=== PATIENT | female | born 1960 | race Caucasian/White ===

== ENCOUNTER 2018-01-13 08:41 | Emergency (ER) | payer BC, OTHER ==
[2018-01-13 08:56] VITALS: BP 110/63
--- NOTE | 2018-01-13 09:32 | RAD ---
INDICATION: Positive PPD. COMPARISON: There are no prior studies available for comparison. TECHNIQUE: Dual-energy PA and lateral views of the chest were obtained. FINDINGS: The heart is within normal limits in size. Mediastinal and hilar contours appear within normal limits. The lungs are clear. No pleural effusion is present. IMPRESSION: NO EVIDENCE FOR ACTIVE CARDIOPULMONARY DISEASE.
--- NOTE | 2018-01-13 09:38 | UC ---
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 no cough or wt loss - History of Current Complaint Chief Complaint: UCGeneralIllness Stated Complaint: NEEDS CHEST XRAY Time Seen by Provider: 01/13/18 09:09 Hx Obtained From: Patient Hx Last Menstrual Period: 12/13/17 Onset/Duration: Gradual Onset Timing: Constant Severity Initially: Mild Severity Currently: Mild Pain Intensity: 2 Associated Signs And Symptoms: Positive: Negative - Allergies/Home Medications Allergies/Adverse Reactions: Allergies Allergy/AdvReac Type Severity Reaction Status Date / Time azithromycin Allergy Rash Verified 01/13/18 08:50 piroxicam [From its learning] Allergy Unknown Verified 01/13/18 08:50 Reaction Details Home Medications: Home Medications FLUoxetine CAP* [Prozac CAP*] 40 mg PO DAILY 01/13/18 [History Confirmed ] Melatonin/Pyridoxine HCl (B6) [Melatonin 5 mg Tablet] 5 mg PO BEDTIME PRN [History Confirmed 01/13/18] PMH/Surg Hx/FS Hx/Imm Hx Previously Healthy: Yes - Surgical History Surgical History: Yes Surgery Procedure, Year, and Place: Hand, Tendon Repair - Family History Known Family History: Positive: Other - uterine CA Negative: Cardiac Disease, Hypertension, Diabetes - Social History Alcohol Use: Weekly Alcohol Amount: 4-5 weely Substance Use Type: None Smoking Status (MU): Never Smoked Tobacco Review of Systems Constitutional: Negative Skin: Negative Eyes: Negative ENT: Sore Throat Respiratory: Negative Cardiovascular: Negative Gastrointestinal: Negative Genitourinary: Negative Motor: Negative Neurovascular: Negative Musculoskeletal: Negative Neurological: Negative Psychological: Negative Is Patient Immunocompromised?: No All Other Systems Reviewed And Are Negative: Yes Physical Exam Triage Information Reviewed: Yes Appearance: Well-Appearing, No Pain Distress, Well-Nourished Vital Signs: Initial Vital Signs Temp 98.3 F 01/13/18 08:52 Pulse 67 01/13/18 08:52 Resp 18 01/13/18 08:52 BP 110/63 01/13/18 08:52 Pulse Ox 100 01/13/18 08:52 Vital Signs Reviewed: Yes Eyes: Positive: Conjunctiva Clear ENT: Positive: Hearing grossly normal, Pharyngeal erythema, TMs normal, Tonsillar swelling - L>R, Uvula midline. Negative: Nasal congestion, Nasal drainage, Tonsillar exudate, Trismus, Muffled voice, Hoarse voice, Dental tenderness Respiratory: Positive: Lungs clear, Normal breath sounds, No respiratory distress, No accessory muscle use Cardiovascular: Positive: RRR, No Murmur Musculoskeletal: Positive: ROM Intact, No Edema Neurological: Positive: Alert Psychological Exam: Normal Skin Exam: Normal UC Diagnostic Evaluation - Laboratory Pertinent Lab Values Are: WNL - strep (-) O2 Sat by Pulse Oximetry: 100 - normal/not hypoxic - Radiology Xray Interpretation: No Acute Changes Radiology Interpretation Completed By: Radiologist Respiratory Course/Dx - Course Course Of Treatment: strep (-). will be out of town for one week. advised here to recheck when she gets home if not better - Differential Dx/Diagnosis Provider Diagnoses: normal chest XR. pharyngitis Discharge - Discharge Plan Condition: Stable Disposition: HOME Patient Education Materials: Pharyngitis (ED) Referrals: Saul Inman MD [Primary Care Provider] - 1 Week Additional Instructions: CXR (-) strep (-)
== END 2018-01-13 10:06 | disposition home or self-care (01) ==
LOC: UCEAST 08:41
DX: J02.9 Acute pharyngitis, unspecified (principal); R76.11 Nonspecific reaction to tuberculin skin test without active tuberculosis; Z88.1 Allergy status to other antibiotic agents
CPT/HCPCS: 71046; 87651; 99212; G0463

== ENCOUNTER 2018-02-20 12:31 | Emergency (ER) | payer SELFPAY ==
--- OUTSIDE RECORDS SUMMARY | 2018-02-20 12:38 | XMS REPORT ---
:1960 External Reference #:[id number] Author Organization [email or web address] Address [address] [address] Phone [phone] Care Team Providers Name Role Phone Saul Inman III, MD Primary Care Physician Unavailable Payers Type Date Identification Numbers Payment Provider Subscriber Commercial Effective: Policy Number: [id number] [facility] Andrea Posey 2012 PayID: [id number] [address] [place] [address] Problems Date Description Provider Status Onset: 10/14/2013 Obesity Sara Mills M.D. Active Onset: 10/14/2013 Temporomandibular joint click Sara Mills M.D. Active Onset: 10/14/2013 Arthralgia of the ankle and/or foot Sara Mills M.D. Active Onset: 10/14/2013 Seborrheic dermatitis Sara Mills M.D. Active Onset: 10/14/2013 Insomnia Sara Mills M.D. Active Family History Date Family Member(s) Problem(s) Comments General dementia Lewy body Social History Type Date Description Comments Lives With Spouse Lives With Daughter Lives With Son Occupation contract research ETOH Use Occasionally consumes alcohol Smoking Patient is a former smoker Smoking started at 18, quit at 21. 1/2pk pd Daily Caffeine Does Not Consume Caffeine Exercise Type/Frequency Does not exercise Sexual Hx text yes Allergies, Adverse Reactions, Alerts Date Description Reaction Status Severity Comments 10/14/2013 Zithromax unknown active 10/14/2013 Feldene Red spots on skin when in the sun active Mild Medications Medication Date Status Form Strength Qnty SIG Indications Ordering Provider Fluoxetine HCL 01/30 Active Tablets 20mg 90tab 1 tablet F41.1 Saul E. s daily. Tameka Inman Melatonin Active Unknown Clonazepam Active Tablets 0.5mg 10tab 1 by mouth Saul E. s 1-2 times a Henny, day as M.D. needed with travel Clonazepam 01/06 Hx Tablets 0.5mg 1 by mouth before Gene, - bedtime as M.DMeena 12/12 Hydrocortisone 01/06 Hx Cream 2.5% 45gm currenly not using Gene, - tapply to M.D. 09/17 hemorrhoids or anus 2-3 times per day prn Fluoxetine HCL 01/06 Hx Capsules 40mg 30cap 1 po qd 300.02 Markell Barron M.D. 12/12 Fluoxetine HCL 12/16 Hx Tablets 10mg 90tab 3 po every 300.02 day Markell Mills M.D. 01/06 Fluoxetine HCL 12/13 Hx Tablets 10mg 30tab 1 po every 300.02 s Markell Sierra M.D. 12/16 Lunesta 11/11 Hx Tablets 3mg 30tab 1 tab po at 780.52 s bedtime Markell Mills M.D. 01/06 Trazodone HCL 10/14 Hx Tablets 50mg 30tab 1 tab po at 780.52 s bedtime prn Markell Mills M.D. 12/13 Alprazolam Hx Tablets 0.5mg 10tab 1 by mouth s bid prn Markell Mills M.D. 01/06 Medroxyprogesteron Hx Tablets 10mg Ovi, eve Taniya Keenan MD 09/16 Fluoxetine HCL Hx Capsules 40mg 30cap 1 by mouth F41.1 Saul E. s every day Markell Inman M.D. 01/30 Stool Softener Hx Capsules 100mg 1 by mouth Unknown every day - 09/16 Immunizations CPT Code Status Date Vaccine Reaction Lot # [id number] Given 09/18/2017 Influenza Virus Vaccine, Pt. tolerated well. No [id number] Quadrivalent, Split, reaction noted. Preservative Free [id number] Given 12/12/2016 Influenza Virus Vaccine, [id number] Quadrivalent, Split Virus, [place] Use [id number] Given 08/17/2015 Influenza Virus Vaccine, [id number] Quadrivalent, Split, Preservative Free [id number] Given 11/24/2008 Tetanus And Diptheria (Td) For Adult Use Preservative Free Vital Signs Date Vital Result Comment 01/30/2018 Weight 200.00 lb Heart Rate 75 /min BP Systolic Sitting 98 mmHg BP Diastolic Sitting 64 mmHg Body Temperature 98.0 F O2 % BldC Oximetry 98 % 09/18/2017 Height 68.5 inches 5'8.50" Weight 203.00 lb Heart Rate 83 /min BP Systolic Sitting 100 mmHg BP Diastolic Sitting 68 mmHg Body Temperature 98.2 F O2 % BldC Oximetry 98 % BMI (Body Mass Index) 30.4 kg/m2 06/11/2017 Height 68.50 inches 5'8.50" Weight 237.12 lb Heart Rate 57 /min BP Systolic 110 mmHg BP Diastolic 68 mmHg Body Temperature 98.9 F O2 % BldC Oximetry 99 % BMI (Body Mass Index) 35.5 kg/m2 12/12/2016 Weight 206.25 lb Heart Rate 74 /min BP Systolic Sitting 102 mmHg BP Diastolic Sitting 60 mmHg Body Temperature 97.3 F O2 % BldC Oximetry 98 % 09/19/2015 Height 68.75 inches 5'8.75" Weight 200.00 lb Heart Rate 70 /min BP Systolic Sitting 118 mmHg BP Diastolic Sitting 68 mmHg Body Temperature 97.6 F O2 % BldC Oximetry 98 % BMI (Body Mass Index) 29.7 kg/m2 08/17/2015 Weight 203.25 lb Heart Rate 72 /min BP Systolic Sitting 116 mmHg BP Diastolic Sitting 68 mmHg Body Temperature 97.2 F Pain Level 0 O2 % BldC Oximetry 98 % 01/06/2015 Weight 205.25 lb Heart Rate 76 /min BP Systolic Sitting 112 mmHg BP Diastolic Sitting 68 mmHg Body Temperature 98.6 F 01/06/2014 Weight 206.00 lb Heart Rate 74 /min BP Systolic Sitting 106 mmHg BP Diastolic Sitting 68 mmHg 12/13/2013 Weight 209.00 lb Heart Rate 77 /min BP Systolic Sitting 99 mmHg BP Diastolic Sitting 63 mmHg 11/11/2013 Weight 208.00 lb Heart Rate 74 /min BP Systolic Sitting 109 mmHg BP Diastolic Sitting 68 mmHg 10/14/2013 Height 68.25 inches 5'8.25" Weight 208.00 lb Heart Rate 70 /min BP Systolic Sitting 109 mmHg BP Diastolic Sitting 63 mmHg BMI (Body Mass Index) 31.4 kg/m2 Results Test Date Test Result H/L Range Note Lipid Profile (Trig/Chol/HDL) 12/11/2016 Triglycerides 146 mg/dL 1 Cholesterol 163 mg/dL 2 HDL Cholesterol 54.4 mg/dL 3 LDL Cholesterol 79 mg/dL 4 Basic Metabolic Panel 12/11/2016 Sodium 136 mmol/L 133-145 Potassium 4.4 mmol/L 3.5-5.0 Chloride 104 mmol/L 101-111 Co2 Carbon Dioxide 29 mmol/L 22-32 Anion Gap 3 mmol/L 2-11 Glucose 90 mg/dL 70-100 Blood Urea Nitrogen 18 mg/dL 6-24 Creatinine 0.93 mg/dL 0.51-0.95 BUN/Creatinine Ratio 19.4 8-20 Calcium 9.0 mg/dL 8.6-10.3 Egfr Non- 62.8 >60 Egfr 80.8 >60 5 CBC No Diff 05/20/2014 White Blood Count 7.3 10^3/uL 4.8-10.8 Red Blood Count 4.63 10^6/uL 4.0-5.4 Hemoglobin 13.9 g/dL 12.0-16.0 Hematocrit 41 % 35-47 Mean Corpuscular Volume 89 fL 80-97 Mean Corpuscular Hemoglobin 30 pg 27-31 Mean Corpuscular HGB Conc 34 g/dL 31-36 Red Cell Distribution Width 14 % 10.5-15 Platelet Count 328 10^3/uL 150-450 Mean Platelet Volume 8 um3 7.4-10.4 Laboratory test finding 05/20/2014 Free T4 1.14 ng/mL High 0.61-1.12 TSH (Thyroid Stimulating Horm) 2.40 IU/mL 0.34-5.60 Prolactin 19.7 ng/mL 1.0-25.0 Laboratory test finding 01/31/2014 TSH (Thyroid Stimulating 1.09 IU/mL 0.34-5.60 6 Horm) Lipid Profile 01/31/2014 Triglycerides 114 mg/dL 7 (Trig/Chol/HDL) Cholesterol 159 mg/dL 8 HDL Cholesterol 52.2 mg/dL 9 LDL Cholesterol 84 mg/dL 10 1 Desirable <150 Borderline high 150-199 High 200-499 Very High >500 2 Desirable <200 Borderline high 200-239 High >239 3 Low <40 Desirable: 40-60 High: >60 4 Desirable: <100 mg/dL Near Optimal: 100-129 mg/dL Borderline High: 130-159 mg/dL High: 160-189 mg/dL Very High: >189 mg/dL 5 Because ethnic data is not always readily available, this report includes an eGFR for both -Americans and non- Americans. The National Kidney Disease Education Program (NKDEP) does not endorse the use of the MDRD equation for patients that are not between the ages of 18 and 70, are , have extremes of body size, muscle mass, or nutritional status, or are non- or non-. According to the National Kidney Foundation, irrespective of diagnosis, the stage of the disease is based on the level of kidney function: Stage Description GFR(mL/min/1.73 m(2)) 1 Kidney damage with normal or decreased GFR 90 2 Kidney damage with mild decrease in GFR 60-89 3 Moderate decrease in GFR 30-59 4 Severe decrease in GFR 15-29 5 Kidney failure <15 (or dialysis) 6 PT IS FASTING 7 Desirable <150 Borderline high 150-199 High 200-499 Very High >500 8 Desirable <200 Borderline high 200-239 High >239 9 Low <40 Desirable: 40-60 High: >60 10 Desirable <100 Near Optimal 100-129 Borderline high 130-159 High 160-189 Very High >189 Procedures Date CPT Code Description Status 05/14/2016 Mammogram Completed 07/21/2015 Mammogram Completed 04/27/2014 Mammogram Completed 11/24/2011 Colonoscopy Completed Encounters Type Date Location Provider CPT E/M Dx Office Visit 09/18/2017 1:20p [facility] Saul Inman, 83229 F41.1 - Joann English K58.1 Z23 Office Visit 06/11/2017 4:20p [facility] Saul Inman, 49796 R10.30 - Joann English Office Visit 12/12/2016 10:40a [facility] Saul Inman, 59677 Z00.00 - Joann English R21 F41.1 Z23 Office Visit 08/17/2015 12:40p [facility] Sara Mills M.D. 73973 L40.0 - [place] K60.2 V04.81 Z23 Office Visit 01/06/2015 9:40a [facility] Sara Mills M.D. 92959 564.1 - [place] 455.3 Office Visit 01/06/2014 10:40a [facility] Sara Mills M.D. 47768 300.02 - [place] 780.52 Office Visit 12/13/2013 2:00p [facility] Sara Mills M.D. 93352 300.02 - [place] 780.52 V76.51 Office Visit 11/11/2013 11:00a [facility] Sara Mills M.D. 99209 780.52 - [place] Office Visit 10/14/2013 10:00a [facility] Sara Mills M.D. 01638 V70.0 - [place] 278.00 524.64 719.47 690.10 780.52 V17.49 Plan of Care Future Appointment(s):04/22/2018 9:20 am - Saul Inman M.D. at [facility] - Ijnqaitwx43/09/2018 - Saul Inman M.D.[id number] Contusion of right lower leg, initial encounter
[2018-02-20 12:47] VITALS: BP 101/61
--- NOTE | 2018-02-20 13:54 | UC ---
Skin Complaint HPI - HPI Summary HPI Summary: Patient has pain and burning in right side bra line---no open areas---has taken 200 mg 3-4 times a days for 2 days with out much relief (med 2010) - History of Current Complaint Chief Complaint: UCSkin Time Seen by Provider: 02/20/18 13:43 Stated Complaint: SKIN COMPLAINT Hx Obtained From: Patient Hx Last Menstrual Period: 01/21/18 ?: No Onset/Duration: Sudden Onset, Lasting Days - 3, Still Present Timing: Constant Onset Severity: Moderate Current Severity: Moderate Location: Discrete Character: Pain Aggravating Factor(s): Nothing Alleviating Factor(s): Nothing Associated Signs & Symptoms: Positive: Negative - Allergy/Home Medications Allergies/Adverse Reactions: Allergies Allergy/AdvReac Type Severity Reaction Status Date / Time azithromycin Allergy Rash Verified 01/13/18 08:50 piroxicam [From Feldene] Allergy Unknown Verified 02/20/18 12:38 Reaction Details Review of Systems Constitutional: Negative Skin: Other - pain in right bra line---no rash or open areas Eyes: Negative ENT: Negative Respiratory: Negative Cardiovascular: Negative Gastrointestinal: Negative Genitourinary: Negative Motor: Negative Neurovascular: Negative Musculoskeletal: Negative Neurological: Negative Psychological: Negative Is Patient Immunocompromised?: No All Other Systems Reviewed And Are Negative: Yes PMH/Surg Hx/FS Hx/Imm Hx Previously Healthy: Yes - Surgical History Surgical History: Yes Surgery Procedure, Year, and Place: Hand, Tendon Repair, uterin polyp removal 2016 and 2013 - Family History Known Family History: Positive: Other - uterine CA Negative: Cardiac Disease, Hypertension, Diabetes - Social History Occupation: Employed Full-time Lives: With Family Alcohol Use: Daily Alcohol Amount: 2 glasses of wine/ day Substance Use Type: None Smoking Status (MU): Never Smoked Tobacco Physical Exam Triage Information Reviewed: Yes Appearance: Well-Appearing, No Pain Distress, Well-Nourished Vital Signs: Initial Vital Signs Temp 98.6 F 02/20/18 12:39 Pulse 76 02/20/18 12:39 Resp 16 02/20/18 12:39 BP 101/61 02/20/18 12:39 Pulse Ox 100 02/20/18 12:39 Vital Signs Reviewed: Yes Eye Exam: Normal Eyes: Positive: Conjunctiva Clear ENT Exam: Normal ENT: Positive: Normal ENT inspection, Hearing grossly normal, Pharynx normal. Negative: Trismus, Muffled voice, Hoarse voice Dental Exam: Normal Neck exam: Normal Neck: Positive: Supple, Nontender, No Lymphadenopathy Respiratory Exam: Normal Respiratory: Positive: Chest non-tender, Lungs clear, No respiratory distress, No accessory muscle use Cardiovascular Exam: Normal Cardiovascular: Positive: RRR, No Murmur, Pulses Normal, Brisk Capillary Refill Musculoskeletal Exam: Normal Musculoskeletal: Positive: Strength Intact, ROM Intact, No Edema Neurological Exam: Normal Neurological: Positive: Alert, Muscle Tone Normal Psychological Exam: Normal Skin: Positive: Other - pain , burning and stabbing with out rash or leasion Course/Dx - Course Course Of Treatment: lidoderm patch, acyclovir, tylenol, ibuprofen follow with pcp - Diagnoses Provider Diagnoses: shingles right thorax Discharge - Sign-Out/Discharge Documenting (check all that apply): Discharge - Discharge Plan Condition: Stable Disposition: HOME Prescriptions: Acyclovir [Zovirax 800 MG] 800 mg PO SEE INSTRUCTIONS 7 Days #35 tab Lidocaine PATCH 5%* [Lidoderm 5% Patch*] 1 patch TRANSDERM DAILY #14 patch Patient Education Materials: Shingles (ED) Referrals: Saul Inman MD [Primary Care Provider] - If Needed - Billing Disposition and Condition Condition: STABLE Disposition: HOME
== END 2018-02-20 14:00 | disposition home or self-care (01) ==
LOC: UCEAST 12:31
DX: B02.9 Zoster without complications (principal); Z88.1 Allergy status to other antibiotic agents; Z88.8 Allergy status to other drugs, medicaments and biological substances
CPT/HCPCS: 99212; G0463